=== PATIENT | female | born 2000 | race Caucasian/White ===

== ENCOUNTER 2020-06-17 23:35 | Inpatient (IN) | payer BC, OTHER ==
[~2020-06-17] VITALS: Ht 160 cm; Wt 78.9 kg
[~2020-06-17 23:35] MED LIST: BACTRIM DS TAB1 EACH PO; CEPHALEXIN500 MG PO
--- NOTE | 2020-06-18 03:52 | NUR ---
SWABBED BOTH NARES FOR RAPID COVID TEST
--- NOTE | 2020-06-18 23:09 | OR ---
[facility] [address], [place] [address] Signed DATE OF OPERATION: 06/18/2020 SURGEON: Carla Dowling MD GEOCHEMIST: Shannon Chang DO PREOPERATIVE DIAGNOSES: 36+ week , probable abruption, preeclampsia without severe features. POSTOPERATIVE DIAGNOSES: 36+ week , probable abruption, preeclampsia without severe features, delivered. PROCEDURE: Primary section with low segment transverse uterine incision. ANESTHESIA: Spinal. ESTIMATED BLOOD LOSS: 700 mL. DRAINS: Jaeger catheter. INDICATIONS AND FINDINGS: The patient is a 20-year-old female, 1, para 0, admitted at 36 and 3/7th weeks with the onset of heavy vaginal bleeding. Ultrasound was done and did not show any evidence of a previa or obvious abruption. However, over the course of observation, she continued to have intermittent heavy bleeding. status was reassuring at this time. However, because of the ongoing bleeding and the remoteness of delivery and patient concerns, the decision was made to proceed with primary section. The patient was consented and taken to the operating room where she was delivered of a little boy from the ROT position via lower segment transverse uterine incision with Apgars of 7 and 7 and weight of 7 pounds 6 ounces. The uterus, tubes, and ovaries appeared normal. The placenta appeared to have some increased clotting near the edge, but was otherwise normal. Electronically Signed By: CARLA DOWLING MD 06/18/20 9207 PATIENT NAME: BART FOOTE OPERATIVE REPORT DATE OF : 99 REPORT #: [id number] PHYSICIAN: CARLA DOWLING MD PCP: CARLA DOWLING MD REPORT IS CONFIDENTIAL AND NOT TO BE RELEASED WITHOUT AUTHORIZATION [facility] [address] [place] [id number] Signed DESCRIPTION OF PROCEDURE: The patient was prepped and draped in the supine position. A Pfannenstiel skin incision was made and carried down through the fascia. The incision was extended laterally. The inferior and superior fascial flaps were then developed. The peritoneum was opened bluntly. The incision extended superiorly and inferiorly. The Bart retractor was then placed. The uterine incision was made at the upper aspect of the lower uterine segment. The baby was delivered with the above findings and handed off to the pediatric staff in attendance. Clear fluid was noted at delivery. The placenta was removed manually. The uterus was explored with a lap tape assuring no remaining fragments. The edges of the incision were identified and the uterus was closed in two layers using 0-Monocryl. The first layer was a running locking stitch. The second was a vertical imbricating stitch. An additional [id number]-rn-gvuaq was required in the midportion for control of bleeding. The abdomen was then copiously irrigated and inspected and good hemostasis was noted. There was a fairly raw area over the lower segment where the bladder flap had been created. Bleeding points were controlled with cautery. Because of the large raw area, decision was made to use Poonam as well. The retractor was removed and the peritoneum identified. Poonam was then placed in the bladder flap area. This was followed by an ACell graft over the lower uterine segment to aid in healing. The peritoneum was then closed with a running suture of 3-0 Vicryl. The The muscles were brought together with interrupted sutures of 0-Vicryl. Bleeding points were controlled on the muscles with cautery. A compensation specialist on the left superior fascial flap was controlled with a [id number]-ea-lhxpw suture of 0-Vicryl as well. This layer was then irrigated and inspected and hemostasis was rendered. Poonam was then sprinkled over the muscles to aid further in hemostasis. The ACell powder was also sprinkled over to aid in healing. The fascia was then closed from each angle to the midline with a running suture of 0-Vicryl. The subcu space was irrigated and bleeding points controlled with cautery. No subcu reapproximation was done as she was very thin. The skin incision was closed with a subcuticular suture for 4-0-Vicryl Rapide. This was followed by Mastisol and Steri-Strips. All sponge and needle counts were correct. She tolerated the procedure well and was taken to the recovery room in good condition. Carla Dowling MD PJW/MODL /[id number] Electronically Signed By: CARLA DOWLING MD 06/18/20 2309 PATIENT NAME: BART FOOTE OPERATIVE REPORT DATE OF : 99 REPORT #: [id number] PHYSICIAN: CARLA DOWLING MD PCP: CARLA DOWLING MD REPORT IS CONFIDENTIAL AND NOT TO BE RELEASED WITHOUT AUTHORIZATION [facility] [address] [place], [place] [address] Signed cc: Shannon Chang DO Copies: SHANNON CHANG DO ~ Electronically Signed By: CARLA DOWLING MD 06/18/20 2309 PATIENT NAME: BART FOOTE OPERATIVE REPORT DATE OF : 99 REPORT #: [id number] PHYSICIAN: CARLA DOWLING MD PCP: CARLA DOWLING MD REPORT IS CONFIDENTIAL AND NOT TO BE RELEASED WITHOUT AUTHORIZATION
== END 2020-06-18 07:15 | disposition home or self-care (01) | DRG 788 ==
LOC: FBCO 23:35 → FBC 06-18 01:55
PROVIDERS: ADMIT Obstetrics & Gynecology; ATTEND Obstetrics & Gynecology
PROC: 10D00Z1 Extraction of Products of Conception, Low, Open Approach (ICD-10-PCS; principal; 2020-06-18)
DX: O14.04 Mild to moderate pre-eclampsia, complicating childbirth (principal); Z3A.36 36 weeks gestation of pregnancy; Z37.0 Single live birth; Z20.822 Contact with and (suspected) exposure to COVID-19; O32.2XX0 Maternal care for transverse and oblique lie, not applicable or unspecified; O45.8X3 Other premature separation of placenta, third trimester; O60.14X0 Preterm labor third trimester with preterm delivery third trimester, not applicable or unspecified; O26.03 Excessive weight gain in pregnancy, third trimester
CPT/HCPCS: 36415; 59025; 82565; 82570; 84156; 84450; 84520; 84550; 85025; 99213; C9803; U0003

== ENCOUNTER 2020-06-18 09:27 | Inpatient (IN) | payer BC, OTHER ==
--- NOTE | 2020-06-18 14:07 | NUR ---
06/18/20 1407 Nisreen Meng 1358: PT ARRIVES TO [facility] ROOM 105 AWAKE AND ORIENTED. SHE DENIES ANY PAIN, NAUSEA, OR LIGHTHEADEDNESS. SHE IS REQUESTING SOMETHING TO DRINK, SHE IS EDUCATED THAT SHE WILL BE STARTED OUT SLOW.
--- NOTE | 2020-06-19 09:56 | PR ---
[facility] [address] [place], [place] [address] Signed PP Progress Notes Datetime Report Generated by CPN: 06/19/2020 09:56 SUBJECTIVE: [id number] Pain: Within Normal Limits Pain Comments: Baby doing well at [facility] Nausea/Vomiting: Denies Flatus: No Vital Signs: [id number] Vital Signs: Reviewed; Within Normal Limits Cardiovascular: Normal Respiratory: Normal Abdomen/Uterus: Abnormal Lochia: Normal Vulva/Perineum: Not Done Breasts: Not Done CVA Tenderness: Not Done Extremities: Normal Incision: Normal Progress: Abnormal Exam Comments: Abdomen with active BS. Fundus firm, NT @ U-2. H/H 12.6/36.7, WBC 14.8, plat 184k IMPRESSION/PLAN/PROCEDURES: [id number] Impression: Normal Progression Plan: Discharge Procedures: None Progress Notes: Doing well. She would like D/C to be taken to [facility] to see her baby who is doing well overall. Signing Physician: Carla Dowling MD Copies: ~ *Electronically Signed* 06/19/20 0956 CARLA DOWLING MD PATIENT NAME: NAHEED FOOTE PROGRESS NOTE DATE OF : 99 PHYSICIAN: CARLA DOWLING MD RPT #: [id number] REPORT IS CONFIDENTIAL AND NOT TO BE RELEASED WITHOUT AUTHORIZATION
== END 2020-06-19 12:40 | disposition home or self-care (01) | DRG 788 ==
LOC: FBCO 09:27 → FBC 09:40
PROVIDERS: ADMIT Obstetrics & Gynecology; ATTEND Obstetrics & Gynecology
PROC: 10D00Z1 Extraction of Products of Conception, Low, Open Approach (ICD-10-PCS; principal; 2020-06-18 12:14)
DX: O14.04 Mild to moderate pre-eclampsia, complicating childbirth (principal); Z3A.36 36 weeks gestation of pregnancy; Z37.0 Single live birth; O45.8X3 Other premature separation of placenta, third trimester; Z20.822 Contact with and (suspected) exposure to COVID-19; O32.2XX0 Maternal care for transverse and oblique lie, not applicable or unspecified; O60.14X0 Preterm labor third trimester with preterm delivery third trimester, not applicable or unspecified; O26.03 Excessive weight gain in pregnancy, third trimester
CPT/HCPCS: 76815; A9270; J0690; J1644; J2001; J2274; J2405; J2590; J7121